=== PATIENT | male | born 1975 | race Asian ===

== ENCOUNTER 2020-11-18 03:03 | Emergency (ER) | payer MEDICAID ==
[~2020-11-18] VITALS: Ht 167.6 cm; Wt 72.7 kg
[2020-11-18] MEDS ORDERED: normal saline 1000ml 1,000 ML IV ONE ×2 (03:45→04:30)
[2020-11-18] MEDS ORDERED: ketorolac tromethamine 15mg/ml inj. IV ONE (03:45)
[2020-11-18] MEDS ORDERED: ondansetron/PF 4mg/2ml inj IV ONE (03:45)
[2020-11-18] MEDS ORDERED: morphine 4 MG/ML inj SYRINge IV ONE (04:25)
[2020-11-18 04:31] LABS: ALANINE AMINOTRANSFERASE 96 U/L (12-78); ALBUMIN 3.6 G/DL (3.4-5.0); ALKALINE PHOSPHATASE 87 IU/L (46-116); ANION GAP 12 (8-16); ASPARTATE AMINO TRANSFERASE 41 U/L (10-37); BILIRUBIN,TOTAL 0.3 MG/DL (0.1-1.0); BLOOD UREA NITROGEN 16 MG/DL (7-18); BUN/CREATININE RATIO 12.1 (5.4-32.0); CHLORIDE 106 MMOL/L (99-107); CREATININE 1.32 MG/DL (0.60-1.10); GLUCOSE 184 MG/DL (70-104); POTASSIUM 3.2 MMOL/L (3.5-5.1); SODIUM 143 MMOL/L (135-145); TOTAL CARBON DIOXIDE 24.8 MMOL/L (24-32); TOTAL PROTEIN 7.1 G/DL (6.4-8.2); eGFR 59 ML/MIN
[2020-11-18 04:33] LABS: BASOPHILS # (AUTO) 0.1 X10'3 (0-0.2); BASOPHILS % (AUTO) 0.7 % (0-1); EOSINOPHILS # (AUTO) 0.1 X10'3 (0-0.9); EOSINOPHILS % (AUTO) 1.6 % (0-6); HEMATOCRIT 42.6 % (42.0-52.0); HEMOGLOBIN 14.9 g/dl (14.0-17.9); LYMPHOCYTES # (AUTO) 3.7 X10'3 (1.1-4.8); MEAN CORPUSCULAR HGB CONC 34.8 g/dL (33.0-36.5); MEAN CORPUSCULAR VOLUME 89.1 FL (78-98); MEAN PLATELET VOLUME 7.6 FL (7.4-10.4); MONOCYTES # (AUTO) 0.8 X10'3 (0-0.9); MONOCYTES % (AUTO) 10.2 % (2-12); NEUTROPHILS # (AUTO) 3.3 X10'3 (1.8-7.7); NEUTROPHILS % (AUTO) 41.5 % (42-75); PLATELET COUNT 258 X10'3 (140-440); RED BLOOD COUNT 4.78 X10'6 (4.70-6.10); RED CELL DISTRIBUTION WIDTH 13.7 % (11.5-14.5)
[2020-11-18] MEDS ORDERED: oxyCODONE/APAP 10/325mg tablet PO ONE (05:20)
[2020-11-18] MEDS ORDERED: IBUP-1986 PO (05:39)
[2020-11-18] MEDS ORDERED: ONDA4TAB12 PO (05:39)
[2020-11-18] MEDS ORDERED: OXYC-145 PO (05:39)
[2020-11-18 06:27] VITALS: BP 120/75
[2020-11-18 06:35] LABS: LIPASE 101 U/L (73-393)
[2020-11-18 06:46] LABS: CLARITY,URINE CLOUDY (Clear); COLOR,URINE YELLOW (Yellow); GLUCOSE, URINE NEGATIVE (Neg); KETONES,URINE TRACE mg/dl (Neg); LEUKOCYTE ESTERASE ,URINE NEGATIVE (Neg); NITRITES, URINE NEGATIVE (Neg); OCCULT BLOOD,URINE LARGE (Neg); PROTEIN,URINE NEGATIVE (Neg); UA COLLECTION TYPE URINAL; UROBILINOGEN,URINE 0.2 E.U/dL (0.2-1.0)
[2020-11-18 06:48] LABS: MUCUS STRANDS FEW /LPF (Neg); SQUAMOUS EPITHELIAL CELL,UR FEW /LPF (FEW)
[2020-11-18 06:50] LABS: RBC,URINE TNTC /HPF (0-2)
[2020-11-18 06:51] LABS: BACTERIA,URINE 1+ /HPF (Neg); WBC,URINE NONE SEEN /HPF (0-4)
== END 2020-11-18 07:12 | disposition home or self-care (01) ==
LOC: ER 03:04
DX: N20.0 Calculus of kidney (principal); K59.00 Constipation, unspecified
CPT/HCPCS: 36415; 74176; 80053; 81001; 83690; 85025; 93005; 96361; 96374; 96375; 99285; J1885; J2270; J2405; J7030

== ENCOUNTER 2022-09-19 10:21 | Emergency (ER) | payer MEDICAID, OTHER ==
[~2022-09-19] VITALS: Ht 157.5 cm; Wt 72.7 kg
[~2022-09-19 10:21] MED LIST: IBUP-1986 PO; ONDA4TAB12 PO; OXYC-145 PO
[2022-09-19 10:28] VITALS: BP 140/82; PULSE 82; RESP 15; O2SAT 97
[2022-09-19 11:17] LABS: CLARITY,URINE CLEAR (Clear); COLOR,URINE YELLOW (Yellow); GLUCOSE, URINE >=1000 mg/dl (Neg); KETONES,URINE TRACE mg/dl (Neg); LEUKOCYTE ESTERASE ,URINE NEGATIVE (Neg); NITRITES, URINE NEGATIVE (Neg); OCCULT BLOOD,URINE NEGATIVE (Neg); PH,URINE 5.5 (4.8-8.0); PROTEIN,URINE NEGATIVE (Neg); UA COLLECTION TYPE VOIDED; UROBILINOGEN,URINE 0.2 E.U/dL (0.2-1.0)
[2022-09-19 11:26] LABS: MUCUS STRANDS FEW /LPF (Neg); SQUAMOUS EPITHELIAL CELL,UR FEW /LPF (FEW)
[2022-09-19 11:27] LABS: BACTERIA,URINE FEW /HPF (Neg); RBC,URINE 0-2 /HPF (0-2); WBC,URINE 0-4 /HPF (0-4)
== END 2022-09-19 12:11 | disposition home or self-care (01) ==
LOC: ER 10:21
DX: R35.0 Frequency of micturition (principal); Z79.899 Other long term (current) drug therapy; Z79.1 Long term (current) use of non-steroidal anti-inflammatories (NSAID); Z79.2 Long term (current) use of antibiotics
CPT/HCPCS: 81001; 99283